=== PATIENT | male | born 1960 | race Caucasian/White ===

== ENCOUNTER → 2024-02-29 | Outpatient (REF) | payer BC ==
[2024-02-29 19:03] LABS: PSA SCREENING 1.15 NG/ML (< 4.00)
[2024-02-29 19:05] LABS: ALBUMIN 3.6 G/DL (3.2-5.2); ALKALINE PHOSPHATASE 79 U/L (46-116); ALT/SGPT 22 U/L (7.0-40); AST/SGOT 12 U/L (<34); BLOOD UREA NITROGEN 17 MG/DL (9-23); CALCIUM LEVEL 9.2 MG/DL (8.3-10.6); CARBON DIOXIDE LEVEL 27 MMOL/L (20-31); CHLORIDE LEVEL 105 MMOL/L (98-107); CHOLESTEROL LEVEL 134 MG/DL (<200); CHOLESTEROL RISK RATIO 3.47 (<5); CREATININE FOR GFR 0.68 MG/DL (0.70-1.30); GLOMERULAR FILTRATION RATE > 60.0 (>49); GLUCOSE, FASTING 118 MG/DL (74-106); HDL CHOLESTEROL 38.6 MG/DL (>40); LDL CHOLESTEROL 81.2 MG/DL (<100); NON-HDL-C 95.4 MG/DL; POTASSIUM SERUM 4.1 MMOL/L (3.5-5.1); SODIUM LEVEL 139 MMOL/L (136-145); TOTAL PROTEIN 6.6 G/DL (5.7-8.2); TRIGLYCERIDES LEVEL 71 MG/DL (<150)
[2024-02-29 19:09] LABS: BASO # 0.1 10^3/uL (0.0-0.2); BASO % 1.1 % (0.0-1.0); EOS # 0.1 10^3/uL (0.0-0.5); EOS % 2.6 % (0.0-3.0); HEMATOCRIT 46.6 % (42.0-52.0); HEMOGLOBIN 15.7 g/dl (13.5-17.5); LYMPH % 17.7 % (24.0-44.0); MEAN CORPUSCULAR HEMOGLOBIN 32.7 pg (27.0-33.0); MEAN CORPUSCULAR HGB CONC 33.7 g/dl (32.0-36.5); MEAN CORPUSCULAR VOLUME 97.1 fl (80.0-96.0); MONO # 0.4 10^3/uL (0.0-0.8); MONO % 7.9 % (2.0-8.0); NEUTROPHILS # 3.8 10^3/uL (1.5-8.5); NEUTROPHILS % 70.3 % (36.0-66.0); PLATELET COUNT, AUTOMATED 237 10^3/uL (150-450); WHITE BLOOD COUNT 5.4 10^3/uL (4.0-10.0)
[2024-02-29 19:34] LABS: HEMOGLOBIN A1c 5.5 % (4.0-6.0)
== END ==
LOC: M SFHCCAPE 09:01
PROVIDERS: ATTEND Physician Assistant Medical
DX: E78.5 Hyperlipidemia, unspecified (principal); R73.01 Impaired fasting glucose; Z12.5 Encounter for screening for malignant neoplasm of prostate; I25.10 Atherosclerotic heart disease of native coronary artery without angina pectoris; I50.20 Unspecified systolic (congestive) heart failure

== ENCOUNTER 2025-02-21 08:05 | Day surgery (SDC) | payer BC ==
[~2025-02-21] VITALS: Ht 177.8 cm; Wt 106.6 kg
[~2025-02-21 08:05] MED LIST: CARV25TA PO; ELIQ5TAB PO; FURO20TA2 PO; ROSU20TA86 PO; SACUBITRIL-VALSARTAN PO
[2025-02-21] MEDS ORDERED: LIDOCAINE 2% 100 MG/5 ML SDV (FOR ANES.) As Ordered ONE (10:12)
[2025-02-21 11:10] VITALS: BP 128/91; TEMP 97.6; O2SAT 98
== END 2025-02-21 11:17 | disposition home or self-care (01) ==
LOC: M OPP 08:05
PROVIDERS: ATTEND Surgery
DX: D12.6 Benign neoplasm of colon, unspecified (principal); K57.30 Diverticulosis of large intestine without perforation or abscess without bleeding; K64.8 Other hemorrhoids; Z86.0100 Personal history of colon polyps, unspecified; Z86.73 Personal history of transient ischemic attack (TIA), and cerebral infarction without residual deficits; Z79.01 Long term (current) use of anticoagulants; Z79.899 Other long term (current) drug therapy

== ENCOUNTER → 2025-04-26 | Outpatient (REF) | payer BC ==
[2025-04-26 17:51] LABS: ALT/SGPT 31 U/L (7.0-40); AST/SGOT 24 U/L (<34); CALCIUM LEVEL 9.3 MG/DL (8.3-10.6); CARBON DIOXIDE LEVEL 28 MMOL/L (20-31); CHLORIDE LEVEL 101 MMOL/L (98-107); CHOLESTEROL LEVEL 113 MG/DL (<200); CHOLESTEROL RISK RATIO 2.74 (<5); CREATININE FOR GFR 0.68 MG/DL (0.70-1.30); GLOMERULAR FILTRATION RATE > 90.0 (>49); LDL CHOLESTEROL 57.6 MG/DL (<100); NON-HDL-C 71.8 MG/DL; POTASSIUM SERUM 4.4 MMOL/L (3.5-5.1); PSA SCREENING 1.27 NG/ML (< 4.00); SODIUM LEVEL 138 MMOL/L (136-145); TRIGLYCERIDES LEVEL 71 MG/DL (<150)
[2025-04-26 17:56] LABS: BASO # 0.0 10^3/uL (0.0-0.2); BASO % 0.6 % (0.0-1.0); EOS # 0.1 10^3/uL (0.0-0.5); EOS % 2.0 % (0.0-3.0); LYMPH # 0.9 10^3/uL (1.5-5.0); LYMPH % 13.6 % (24.0-44.0); MONO # 0.5 10^3/uL (0.0-0.8); MONO % 7.2 % (2.0-8.0); NEUTROPHILS # 4.9 10^3/uL (1.5-8.5); NEUTROPHILS % 76.4 % (36.0-66.0); PLATELET COUNT, AUTOMATED 235 10^3/uL (150-450)
[2025-04-26 18:30] LABS: ESTIMATED AVERAGE GLUCOSE 117.0 MG/DL (60-110)
== END ==
LOC: M SFHCCAPE 08:18
PROVIDERS: ATTEND Physician Assistant Medical
DX: I25.10 Atherosclerotic heart disease of native coronary artery without angina pectoris (principal); I50.20 Unspecified systolic (congestive) heart failure; I10 Essential (primary) hypertension; R73.01 Impaired fasting glucose; E78.5 Hyperlipidemia, unspecified; Z12.5 Encounter for screening for malignant neoplasm of prostate
CPT/HCPCS: 80053; 80061; 83036; 85025; G0103